=== PATIENT | male | born 1990 | race Caucasian/White ===

== ENCOUNTER 2019-12-28 02:30 | Emergency (ER) | payer MEDICAID, SELFPAY ==
[~2019-12-28] VITALS: Ht 170.2 cm; Wt 89.8 kg
[2019-12-28 02:30] VITALS: BP 146/77
--- NOTE | 2019-12-28 02:34 | NUR ---
PT AMBUALOTRY TO ROOM 2 WITH MASK ON.
[2019-12-28 02:40] VITALS: BP 146/77
--- NOTE | 2019-12-28 02:41 | NUR ---
29M PRESENTS TO ED WITH C/O OF COUGH, SUBJECTIVE FEVER, HEADACHE, AND COLD X 3 DAYS. VSS. NO PRESENCE OF COUGH OBSERVED. TEMP 99.0. PT DENIES BLURRY VISION AND LOC. DENIES N/V/D. DENIES SOB. PT STATES TAKING MOTRIN, XL3, AND NYQUIL WITH NO FEVER/HEADACHE RELIEF. LUNGS SOUNDS CLEAR ON ALL LOYOLA UPON AUSCULTATION. RESPIRATIONS EVEN AND UNLABORED. BOWEL SOUNDS NORMOACTIVE. PMHX: DENIES RX: MOTRIN, XL3, NYQUIL.
--- NOTE | 2019-12-28 02:45 | NUR ---
ABNER PEREYRA AT BEDSIDE EVALUATING PT.
[2019-12-28] MEDS ORDERED: IBUPROFEN 800 MG TAB PO ONE (02:55)
[2019-12-28] MEDS ORDERED: AMOXIL/CLAVULANATE 875/125 MG 1 TAB PO ONE (02:55)
--- NOTE | 2019-12-28 02:56 | NUR ---
XRAY AT BEDSIDE.
--- NOTE | 2019-12-28 02:59 | NUR ---
COVID SWAB COLLECTED AND SENT TO LAB.
--- NOTE | 2019-12-28 03:00 | NUR ---
PT MEDICATED WITH AUGMENTIN AND MOTRIN . TOLERATED WELL. NADR
--- NOTE | 2019-12-28 03:18 | NUR ---
EKG BEING PERFORMED AT BEDSIDE. NRS @ 70.
--- NOTE | 2019-12-28 03:33 | NUR ---
Patient discharged with v/s stable. Written and verbal after care instructions given and explained. Patient alert, oriented and verbalized understanding of instructions. Ambulatory with steady gait. All questions addressed prior to discharge. ID band removed. Patient advised to follow up with PMD. Rx of MOTRIN AND AUGMENTIN given. Patient educated on indication of medication including possible reaction and side effects. Opportunity to ask questions provided and answered.
--- NOTE | 2019-12-30 06:57 | NUR ---
LAB CALLED FOR POSITIVE SARS-COVID 2 RESULT, DR NOLAN MADE AWARE AND ADVISED TO ENDORSED TO THE MORNING SHIFT , DR PEREYRA. PT COVID 2 RESULT WAS HANDLED BY THE ICT ACCOUNT MANAGER TO BRET RONDON. BRET RONDON TO FOLLOW UP TO MORNING MD DR PEREYRA.
--- NOTE | 2019-12-30 07:10 | NUR ---
OBTAINED POSITIVE RESULTS SHERIDAN FROM LAB. PLACED IN INFECTION CONTROL INBOX.
--- NOTE | 2019-12-30 17:30 | NUR ---
PT CALLED [facility] ER IN REGARDS TO PREVIOUS VISIT December. PT STATES THAT HE WAS TOLD THAT HE WAS POSITIVE FOR COVID. HE STARTED TAKING AMOXICILLIN THURSDAY AND HAS STARTED DEVELOPING BLISTERS TO HIS MOUTH AND BACK OF THROAT X YESTERDAY. PATIENT STATES BLISTERS ARE WORSENING AND GROWING. DENIES SOB, THROAT TIGHTENING, OR DIFFICULTY BREATHING. DR PEREYRA INFORMED OF PTS S/S. INSTRUCTED PT TO STOP TAKING AMOXICLLIN AND THAT HE MAY BE BE EXPERIENCING AN ALLERGIC REACTION. INSTRUCTED PT THAT HE NEEDS TO SEEK MEDICAL HELP AND THAT HE MAY COME INTO ER TO BE SEEN BY PHYSICIAN.
== END 2019-12-28 03:33 | disposition home or self-care (01) ==
LOC: EEVIPCON 02:30 → MED 02:30
DX: H66.92 Otitis media, unspecified, left ear (principal); R50.9 Fever, unspecified; R05 Cough; Z20.828 Contact with and (suspected) exposure to other viral communicable diseases
CPT/HCPCS: 71045; 99284; Q0092; U0003; 93005

== ENCOUNTER 2019-12-30 17:42 | Emergency (ER) | payer MEDICAID, SELFPAY ==
[~2019-12-30] VITALS: Ht 170.2 cm; Wt 89.8 kg
[2019-12-30 17:54] VITALS: BP 130/75
--- NOTE | 2019-12-30 17:58 | NUR ---
PT CALLED [facility] ER APPROX 1 HOUR PRIOR TO ARRIVAL AND STATES THAT HE WAS HERE December FOR COVID S/S, WAS DISCHARGED HOME WITH IBUPROFEN AND AMOXICILLIN, AND IS NOW DEVELOPING MOUTH BLISTERS POST TAKING AMOXICILLIN. PT STATES BLISTERS STARTED YESTERDAY AND ARE GROWING AND SPREADING TO BACK OF HIS THROAT. MINOR BLISTER SORES PRESENT TO PTS INNER LOWER LIP WITH PAIN 10/10. PT CLEAR SPEECH, AIRWAY INTACT, PT DENIES SOB OR THROAT TIGHTENING. VS STABLE. PT IS COVID POSITIVE Addendum: 12/30/19 at 1804 by [email or web address] PT WAS INSTRUCTED TO COME INTO ER AFTER PHONE CALL COMPLAINT FOR POSSIBLE ALLERGIC REACTION FROM AMOXICILLIN
--- NOTE | 2019-12-30 18:17 | NUR ---
Patient discharged with v/s stable. Written and verbal after care instructions given and explained REGARDING CANKER SORES. INSTRUCTED PT THAT THESE SORES ARE OFTEN CAUSED BY A VIRUS AND WILL HEAL IN 1-2 WEEKS Patient verbalized understanding. Ambulatory with steady gait. All questions addressed prior to discharge. Advised to follow up with PMD. INSTRUCTED PT THAT HE IS NOT HAVING AN ALLERGIC REACTION AND THAT HE MAY CONTINUE TAKING AMOXICILLIN PT INSTRUCTED ON SAFTY GUIDELINES TO SHERIDAN
== END 2019-12-30 18:17 | disposition home or self-care (01) ==
LOC: EEVIPCON 17:42 → MED 17:42
DX: K12.0 Recurrent oral aphthae (principal); Z90.89 Acquired absence of other organs
CPT/HCPCS: 99282; 99283

== ENCOUNTER 2020-01-02 21:39 | Emergency (ER) | payer MEDICAID, SELFPAY ==
[~2020-01-02] VITALS: Ht 170.2 cm; Wt 89.8 kg
[2020-01-02 21:39] VITALS: BP 154/98
--- NOTE | 2020-01-02 21:39 | NUR ---
PT TRIAGED AND IN TENT.
--- NOTE | 2020-01-02 22:34 | NUR ---
PT AMBULATED TO BED 01 WITH STEADY GAIT.
--- NOTE | 2020-01-02 22:39 | NUR ---
RT AT BEDSIDE
--- NOTE | 2020-01-02 22:57 | NUR ---
PT WAS DIAGNOSISED COVID POSITIVE 12/28/19. HE'S COMING IN TODAY FOR INCREASE IN SOB AND HE STATES HE STARTED COUGHING AROUND NOON TODAY. COUGH IS NONPRODUCTIVE. PT CURRENTLY AFEBRILE. NO N/V/D. O2 SAT CURRENTLY 99% ON R/A, LUNGS CLEAR BILATERALLY. BED IN LOWEST POSITION AND SIDERAIL UP X 1 ALLEGERY - MORPHINE NO MED HX
[2020-01-02 23:45] VITALS: BP 154/98
--- NOTE | 2020-01-02 23:45 | NUR ---
Patient discharged with v/s stable. Written and verbal after care instructions given and explained. Patient alert, oriented and verbalized understanding of instructions. Ambulatory with steady gait. All questions addressed prior to discharge. ID band removed. Patient advised to follow up with PMD. Rx of PROMETHAAZINE given. Patient educated on indication of medication including possible reaction and side effects. Opportunity to ask questions provided and answered.
== END 2020-01-02 23:45 | disposition home or self-care (01) ==
LOC: EEVIPCON 21:39 → MED 21:39
DX: R05 Cough (principal); R50.9 Fever, unspecified; R19.7 Diarrhea, unspecified; R10.9 Unspecified abdominal pain; Z88.5 Allergy status to narcotic agent; Z20.828 Contact with and (suspected) exposure to other viral communicable diseases
CPT/HCPCS: 36600; 71045; 99284; Q0092

== ENCOUNTER 2020-08-24 15:57 | Emergency (ER) | payer MEDICAID, SELFPAY ==
[~2020-08-24] VITALS: Ht 167.6 cm; Wt 95.7 kg
[2020-08-24 15:59] VITALS: BP 128/72
--- NOTE | 2020-08-24 16:21 | NUR ---
29 YEAR OLD MALE COMPLAINS OF DIZZINESS X 1 HOUR. PATIENT VERBALIZED CONSUMING 2 SCOOPS OF PRE-WORKOUT COMPARED TO USUAL 1 SCOOP. PATIENT VERBALIZED NOT EATING BREAKFAST PRIOR TO WORKOUT, EXERCISING OUTDOORS WHILE HOT. DENIES FAINTING. DENIES NAUSEA/DIARRHEA, BUT VERBALIZED VOMITING. BOWELS SOUNDS NORMOACTIVE THROUGHOUT. ABDOMEN FLAT, SOFT, NON-TENDER. SKIN WARM, PALE, AND DIAPHORETIC. AO4, BREATHING EVEN AND UNLABORED. BED IN LOWEST POSITION, LOCKED, X1 SIDERAIL UP. PMH - DENIED NKA
[2020-08-24 16:52] VITALS: BP 113/68
--- NOTE | 2020-08-24 16:53 | NUR ---
Patient discharged with v/s stable. Written and verbal after care instructions ABOUT [facility] given and explained. Patient verbalized understanding. Ambulatory with steady gait. All questions addressed prior to discharge. Advised to follow up with PMD.
== END 2020-08-24 16:53 | disposition home or self-care (01) ==
LOC: MED 15:57
DX: F15.10 Other stimulant abuse, uncomplicated (principal); Z88.5 Allergy status to narcotic agent
CPT/HCPCS: 93005; 99283

== ENCOUNTER 2020-12-31 00:18 | Emergency (ER) | payer MEDICAID ==
[~2020-12-31] VITALS: Ht 167.6 cm; Wt 87.5 kg
[2020-12-31 00:22] VITALS: BP 131/77
--- NOTE | 2020-12-31 00:29 | NUR ---
PT TAKEN TO BED 5
--- NOTE | 2020-12-31 00:33 | NUR ---
patient c/o severe burning pain on bilateral testicles. started 3 days. radiates to the stomach and back pain. patient states he is on a 40 days diet and only takes water and bread for muslim reasons. Head of the penis has some redness and rash. AAOx4. VSS. PMH: patient reports something has happened to him that was like this Allergies: morphine
--- NOTE | 2020-12-31 00:34 | NUR ---
Dr. Hunt examining patient.
--- NOTE | 2020-12-31 00:34 | NUR ---
chaperoned with ERMD while examining patient.
--- NOTE | 2020-12-31 00:34 | NUR ---
Note shellione in EDM - 12/31/20 at 0105 by [email or web address] patient c/o severe burning pain on bilateral testicles. started 3 days. radiates to the stomach and back pain. patient states he is on a 40 days diet and only takes water and bread for anglican reasons. Head of the penis has some redness and rash. AAOx4. VSS. PMH: patient reports something has happened to him that was like this Allergies: morphine
[2020-12-31] MEDS ORDERED: cefTRIAXone 500 MG in LIDOCAINE MPF 1% 1 ML IM ONE (00:40)
[2020-12-31] MEDS ORDERED: DOXY-487 PO (00:45)
[2020-12-31] MEDS ORDERED: LIDOCAINE MPF 1% 5 ML ONE (00:51)
[2020-12-31] MEDS ORDERED: cefTRIAXone 500 MG VIAL ONE (00:51)
--- NOTE | 2020-12-31 01:04 | NUR ---
Rachel shelby in ED - 12/31/20 at 0104 by MYRIAM chaperoned with ERMD while examining patient.
[2020-12-31 01:09] LABS: APPEARANCE,URINE CLEAR (CLEAR); BILIRUBIN,URINE NEGATIVE (NEGATIVE); BLOOD, URINE NEGATIVE (NEGATIVE); COLOR,URINE YELLOW (YELLOW); LEUKOCYTE ESTERASE ,URINE NEGATIVE (NEGATIVE); NITRITE, URINE NEGATIVE (NEGATIVE); UGLUCOSE NEGATIVE (NEGATIVE)
--- NOTE | 2020-12-31 01:15 | NUR ---
Patient discharged with v/s stable. Written and verbal after care instructions given and explained. Patient alert, oriented and verbalized understanding of instructions. Ambulatory with steady gait. All questions addressed prior to discharge. ID band removed. Patient advised to follow up with PMD. Rx of doxycycline hyclate given. Patient educated on indication of medication including possible reaction and side effects. Opportunity to ask questions provided and answered.
[2020-12-31 01:16] VITALS: BP 128/73
== END 2020-12-31 01:15 | disposition home or self-care (01) ==
LOC: MED 00:18
DX: N34.2 Other urethritis (principal); Z88.5 Allergy status to narcotic agent; Z79.899 Other long term (current) drug therapy
CPT/HCPCS: 36415; 81003; 82948; 87491; 96372; 99283; J0696; J2001

== ENCOUNTER 2021-10-26 15:22 | Emergency (ER) | payer MEDICAID ==
[~2021-10-26] VITALS: Ht 167.6 cm; Wt 94.8 kg
[~2021-10-26 15:22] MED LIST: DOXY-487 PO
--- NOTE | 2021-10-26 15:30 | NUR ---
URINE SAMPLE COLLECTED AND HANDED TO BURRER MACHINE ALMA
[2021-10-26 15:37] VITALS: BP 152/89
--- NOTE | 2021-10-26 17:05 | NUR ---
30/M PRESENTS TO ED WITH C/O SUPRAPUBIC PAIN X3 DAYS. PATIENT STATES HE HAD SIMILAR SYMPTOMS IN THE PAST AND WAS GIVEN RX OF ABX WITH RELIEF. PATIENT ADMITS TO RECENT NEW SEXUAL [employer]NER BUT STATES HE IS NOT CONCERNED FOR STDS. DENIES DISCHARGE, DYSURIA, FEVER OR CHILLS.
[2021-10-26 17:22] LABS: APPEARANCE,URINE CLEAR (CLEAR); BILIRUBIN,URINE NEGATIVE (NEGATIVE); BLOOD, URINE NEGATIVE (NEGATIVE); COLOR,URINE YELLOW (YELLOW); LEUKOCYTE ESTERASE ,URINE NEGATIVE (NEGATIVE); NITRITE, URINE NEGATIVE (NEGATIVE); UGLUCOSE NEGATIVE (NEGATIVE)
[2021-10-26] MEDS ORDERED: DOXY-690 PO (17:34)
[2021-10-26] MEDS ORDERED: cefTRIAXone 250 MG in LIDOCAINE MPF 1% 0.9 ML IM ONE (17:35)
[2021-10-26] MEDS ORDERED: cefTRIAXone 250 MG VIAL ONE ×2 (17:48)
--- NOTE | 2021-10-26 17:50 | NUR ---
ATTEMPTED TO PULL ROCEPHIN AND LIDOCAINE 1% MULTIPLE TIMES UNSUCCESSFULLY, ADELELL NEEDED TO BE REBOOTED. CHARGE NURSE NENA WITNESSED AND ASSISTED.
[2021-10-26] MEDS ORDERED: LIDOCAINE MPF 1% 5 ML ONE (17:55)
[2021-10-26 18:27] VITALS: BP 122/80
--- NOTE | 2021-10-26 18:27 | NUR ---
Patient discharged with v/s stable. Written and verbal after care instructions ABOUT PROSTATITIS given and explained. Patient alert, oriented and verbalized understanding of instructions. Ambulatory with steady gait. All questions addressed prior to discharge. ID band removed. Patient advised to follow up with PMD. Rx of VIBRAMYCIN given. Patient educated on indication of medication including possible reaction and side effects. Opportunity to ask questions provided and answered.
== END 2021-10-26 18:27 | disposition home or self-care (01) ==
LOC: MED 15:22
DX: N41.9 Inflammatory disease of prostate, unspecified (principal); Z88.5 Allergy status to narcotic agent; Z79.899 Other long term (current) drug therapy
CPT/HCPCS: 36415; 81003; 96372; 99283; J0696; J2001; 87491